=== PATIENT | male | born 1980 | race Caucasian/White ===

== ENCOUNTER 2022-07-27 12:46 | Outpatient (CLI) | payer OTHER, SELFPAY ==
--- NOTE | 2022-07-27 13:00 | CRLHL7_ITS ---
For Patients: As a result of the Century Cures Act, medical imaging exams and procedure reports are released immediately into your electronic medical record. You may view this report before your referring provider. If you have questions, please contact your health care provider. INDICATION: History of injury. Surgical planning. COMPARISON: None provided. TECHNIQUE: Multidetector imaging of the left elbow in flexion. Axial, coronal and sagittal formats. FINDINGS: Mildly complex comminuted intra-articular fracture of the volar 1/3 to 1/2 of the radial head. Dominant fracture fragment is roughly 1 cm volar and distal displaced from donor site. Comminuted mildly volar displaced fracture through the tip of the coronoid process. Stippled too subtle to measure intra-articular debris around the coronoid fracture as well as in the lateral joint margin, mostly dorsal from the capitellum. There probably is very subtle shear fracture defect at the dorsal capitellum but no measurably large fracture or bony donor site is evident. Joint effusion is moderately large displacing anterior and posterior fat-pad. Plaster splint. IMPRESSION : 1. Moderately displaced volar radial head fracture. Probable shear fracture of the dorsal capitellum suggest prior dislocation. Tip of the coronoid fracture is comminuted. Large joint effusion. Please note that all CT scans at this facility use dose modulation, iterative reconstruction, and/or weight-based dosing when appropriate to reduce radiation dose to as low as reasonably achievable. Dictated by Wilian Rebolledo MD @ 07/28/2022 8:42:38 AM (Electronically Signed)
== END 2022-07-27 12:47 | disposition home or self-care (01) ==
LOC: CT 12:46
PROVIDERS: PCP Family Medicine; Visit Provider Physician Assistant
DX: S52.122A Displaced fracture of head of left radius, initial encounter for closed fracture (principal)
CPT/HCPCS: 73200